=== PATIENT | male | born 1980 | race Caucasian/White ===

== ENCOUNTER 2022-07-17 06:16 | Inpatient (IN) ==
[2022-07-17] MEDS ORDERED: CeFAZolin Syr 3,000MG/30 ML 3,000 MG/30 ML SYRINGE IVPB ONE (06:39)
[2022-07-17] MEDS ORDERED: Ringers Solution, Lactated 1,000 ML IVC SCH (06:45)
[2022-07-17] MEDS ORDERED: *HR* FentaNYL (PF) 100 MCG/2 ML VIAL ONE (07:13)
[2022-07-17] MEDS ORDERED: Lidocaine -MPF 2% 5 ML VIAL ONE (07:13)
[2022-07-17] MEDS ORDERED: Lidocaine HCL 4 ML Topical Solution (Laryng-O-Jet Kit Sterile Pak) TP ONE (07:13)
[2022-07-17] MEDS ORDERED: *HR* Propofol 200 MG/20 ML VIAL IVP ONE ×2 (07:13→08:27)
[2022-07-17] MEDS ORDERED: *HR* Midazolam HCl 2 MG/2 ML VIAL ONE (07:13)
[2022-07-17] MEDS ORDERED: *HR* Succinylcholine 200 MG/10 ML VIAL IVP ONE (07:13)
[2022-07-17] MEDS ORDERED: *HR* Rocuronium Bromide 50 MG/5 ML VIAL ONE (07:13)
[2022-07-17] MEDS ORDERED: *HR* HYDROmorphone (PF) 1 MG/ML SYRINGE IVP PRN (07:15)
[2022-07-17] MEDS ORDERED: *HR* Labetalol 20 MG/4 ML SYRINGE IVP PRN (07:15)
[2022-07-17] MEDS ORDERED: Scopolamine Patch 1.5 MG PATCH.TD72 TD ONE (07:15)
[2022-07-17] MEDS ORDERED: Famotidine 20 MG/2 ML VIAL IVP ONE (07:15)
[2022-07-17] MEDS ORDERED: Ondansetron 4 MG/2 ML VIAL IVP PRN ×2 (07:15→12:34)
[2022-07-17] MEDS ORDERED: *HR* OxyCODONE Immed Rel 5 MG TABLET PO PRN (07:15)
[2022-07-17] MEDS ORDERED: Acetaminophen IV 1,000 MG/100 ML BAG IVPB ONE (07:15)
[2022-07-17] MEDS ORDERED: *HR* HYDROmorphone 2 MG TABLET PO PRN (07:15)
[2022-07-17] MEDS ORDERED: Lidocaine/EPI 1:100k 1% 20 ML VIAL ONE (07:22)
[2022-07-17] MEDS ORDERED: Dexmedetomidine HCl 0 MCG/0 ML MLS IVC ONE (07:38)
[2022-07-17] MEDS ORDERED: *HR* Vasopressin 20 UNIT/ML VIAL ONE (07:38)
[2022-07-17] MEDS ORDERED: Sugammadex Sodium 200 MG/2 ML VIAL IV ONE ×2 (08:37→08:39)
[2022-07-17] MEDS ORDERED: flumazeniL 0.5 MG/5 ML VIAL IVP ONE (08:49)
[2022-07-17] MEDS ORDERED: Naloxone 0.4 MG/ML INJ ONE (08:54)
[2022-07-17] MEDS ORDERED: *HR* OxyCODONE/APAP 5/325 TABLET PO PRN (12:34)
[2022-07-17] MEDS ORDERED: Ampicillin/Sulbactam 3,000 MG in 0.9 % Sodium Chloride Mini Bag 100 ML IVPB SCH (13:27)
[2022-07-17 13:39] LABS: Basophils % 0.3 %; Eosinophils % 0.1 %; Hematocrit 48.9 % (37.5-50.1); Hemoglobin 15.2 g/dL (12.9-16.9); Immature Granulocytes % 0.4 % (0-4); Lymphocytes # 0.5 K/mcL (0.6-4.6); Lymphocytes % 6.5 %; Mean Corpuscular HGB Conc 31.1 g/dL (31.6-35.5); Mean Corpuscular Hemoglobin 29.1 pg (28.0-33.3); Mean Corpuscular Volume 93.7 fL (83.0-100.0); Mean Platelet Volume 10.6 fL (9.4-12.4); Monocytes # 0.1 K/mcL (0.0-1.3); Monocytes % 1.2 %; Neutrophils # 7.1 K/mcL (1.6-8.9); Platelet Count 189 K/mcL (140-400); Red Blood Count 5.22 M/mcL (4.19-5.50); Red Cell Distribution Width 14.3 % (11.5-14.5); Segmented Neutrophils % 91.5 %; White Blood Count 7.8 K/mcL (4.3-11.1)
[2022-07-17 13:57] LABS: Alanine Aminotransferase 34 Units/L (7-52); Albumin 3.7 g/dL (3.5-5.7); Albumin/Globulin Ratio 1.6 (1.1-2.2); Alkaline Phosphatase 117 Units/L (34-104); Aspartate Amino Transferase 46 Units/L (13-39); BUN/Creatinine Ratio 17 (6-26); Bilirubin,Total 0.4 mg/dL (0.3-1.0); Blood Urea Nitrogen 13 mg/dL (6-20); Calcium 8.6 mg/dL (8.6-10.3); Carbon Dioxide 28 mEq/L (23-29); Chloride 108 mEq/L (98-107); Globulin 2.3 g/dL (2.4-3.5); Glucose 158 mg/dL (70-105); Osmolality,Calculated 295 (280-300); Phosphorous 2.6 mg/dL (2.7-4.5); Potassium 4.6 mEq/L (3.5-5.1); Sodium 141 mEq/L (136-145)
[2022-07-17 13:59] LABS: ABG Base Excess 1 mEq/L (-2 to 3); ABG HCO3 29 mEq/L (21-27); ABG Oxygen Saturation 91 % (95-98); ABG PCO2 57 mmHg (35-45); ABG PH 7.31 pH Units (7.32-7.45); ABG PO2 69 mmHg (85-104); ABG TCO2 31 mEq/L (20-26)
[2022-07-17 15:29] LABS: Adenovirus Not Detected (Not Detect); Bordetella Pertussis Not Detected (Not Detect); Chlamydophila pneumoniae Not Detected (Not Detect); Coronavirus 229E Not Detected (Not Detect); Coronavirus HKU1 Not Detected (Not Detect); Coronavirus NL63 Not Detected (Not Detect); Coronavirus OC43 Not Detected (Not Detect); Human Metapneumovirus Not Detected (Not Detect); Human Rhinovirus/Enterovirus Not Detected (Not Detect); Influenza A Subtype 2009 H1 Not Detected (Not Detect); Influenza B Not Detected (Not Detect); Mycoplasma pneumoniae Not Detected (Not Detect); Parainfluenza Virus 1 Not Detected (Not Detect); Parainfluenza Virus 2 Not Detected (Not Detect); Parainfluenza Virus 3 Not Detected (Not Detect); Parainfluenza Virus 4 Not Detected (Not Detect); Respiratory Syncytial Virus Not Detected (Not Detect); SARS-CoV-2 Not Detected (Not Detect)
[2022-07-17] MEDS: Ampicillin/Sulbactam 3,000 MG in 0.9 % Sodium Chloride Mini Bag 100 ML IVPB SCH ×2 (15:48→23:01)
[2022-07-17] MEDS: *HR* Heparin 5,000 UNIT/ML VIAL SQ SCH (17:21)
[2022-07-17 17:28] LABS: VBG HCO3 25 mEq/L (21-27); VBG PCO2 37 mmHg (41-51); VBG PH 7.44 pH Units (7.32-7.42); VBG PO2 208 mmHg (25-50)
[2022-07-18] MEDS: Ampicillin/Sulbactam 3,000 MG in 0.9 % Sodium Chloride Mini Bag 100 ML IVPB SCH ×4 (05:14→21:58)
[2022-07-18] MEDS: *HR* Heparin 5,000 UNIT/ML VIAL SQ SCH ×3 (05:15→21:58)
[2022-07-18] MEDS: Aspirin Enteric Coated 81 MG Tablet PO SCH (08:13)
[2022-07-18] MEDS: Loratadine 10 MG TABLET PO SCH (08:13)
[2022-07-18] MEDS: BuPROPion XL (24 HR) 150 MG TABLET PO SCH (08:13)
[2022-07-18 09:21] LABS: Basophils % 0.2 %; Eosinophils % 0.1 %; Hemoglobin 14.6 g/dL (12.9-16.9); Immature Granulocytes % 0.4 % (0-4); Lymphocytes # 2.2 K/mcL (0.6-4.6); Lymphocytes % 22.8 %; Mean Corpuscular HGB Conc 30.4 g/dL (31.6-35.5); Mean Corpuscular Hemoglobin 28.8 pg (28.0-33.3); Mean Corpuscular Volume 94.7 fL (83.0-100.0); Mean Platelet Volume 10.6 fL (9.4-12.4); Monocytes # 0.9 K/mcL (0.0-1.3); Monocytes % 9.5 %; Neutrophils # 6.6 K/mcL (1.6-8.9); Platelet Count 227 K/mcL (140-400); Red Blood Count 5.07 M/mcL (4.19-5.50); Red Cell Distribution Width 14.1 % (11.5-14.5); White Blood Count 9.8 K/mcL (4.3-11.1)
[2022-07-18 09:38] LABS: BUN/Creatinine Ratio 15 (6-26); Blood Urea Nitrogen 11 mg/dL (6-20); Calcium 8.5 mg/dL (8.6-10.3); Carbon Dioxide 32 mEq/L (23-29); Chloride 107 mEq/L (98-107); Glucose 109 mg/dL (70-105); Osmolality,Calculated 296 (280-300); Potassium 4.4 mEq/L (3.5-5.1); Sodium 143 mEq/L (136-145)
[2022-07-18 10:29] LABS: ABG Base Excess 3 mEq/L (-2 to 3); ABG HCO3 32 mEq/L (21-27); ABG Oxygen Saturation 96 % (95-98); ABG PCO2 66 mmHg (35-45); ABG PO2 97 mmHg (85-104); ABG TCO2 34 mEq/L (20-26)
[2022-07-18] MEDS ORDERED: Ipratropium/Albuterol Neb 3 ML IH PRN (12:10)
[2022-07-18] MEDS: Ipratropium/Albuterol Neb 3 ML IH SCH ×2 (15:38→21:37)
[2022-07-19 02:57] LABS: Basophils # 0.1 K/mcL (0.0-0.2); Basophils % 0.7 %; Eosinophils # 0.1 K/mcL (0.0-0.6); Eosinophils % 1.2 %; Hematocrit 43.6 % (37.5-50.1); Hemoglobin 13.3 g/dL (12.9-16.9); Immature Granulocytes % 0.3 % (0-4); Lymphocytes # 3.5 K/mcL (0.6-4.6); Lymphocytes % 33.6 %; Mean Corpuscular HGB Conc 30.5 g/dL (31.6-35.5); Mean Corpuscular Hemoglobin 28.9 pg (28.0-33.3); Mean Corpuscular Volume 94.6 fL (83.0-100.0); Mean Platelet Volume 10.7 fL (9.4-12.4); Monocytes # 0.9 K/mcL (0.0-1.3); Neutrophils # 5.8 K/mcL (1.6-8.9); Platelet Count 178 K/mcL (140-400); Red Blood Count 4.61 M/mcL (4.19-5.50); Segmented Neutrophils % 55.2 %; White Blood Count 10.4 K/mcL (4.3-11.1)
[2022-07-19 03:18] LABS: BUN/Creatinine Ratio 18 (6-26); Blood Urea Nitrogen 13 mg/dL (6-20); Calcium 8.3 mg/dL (8.6-10.3); Carbon Dioxide 33 mEq/L (23-29); Chloride 106 mEq/L (98-107); Glucose 102 mg/dL (70-105); Osmolality,Calculated 296 (280-300); Potassium 3.8 mEq/L (3.5-5.1); Sodium 143 mEq/L (136-145)
[2022-07-19] MEDS: Ipratropium/Albuterol Neb 3 ML IH SCH ×4 (03:41→20:26)
[2022-07-19] MEDS: *HR* Heparin 5,000 UNIT/ML VIAL SQ SCH ×3 (04:57→21:17)
[2022-07-19] MEDS: Ampicillin/Sulbactam 3,000 MG in 0.9 % Sodium Chloride Mini Bag 100 ML IVPB SCH ×4 (04:57→21:18)
[2022-07-19 05:16] LABS: VBG HCO3 28 mEq/L (21-27); VBG PCO2 41 mmHg (41-51); VBG PH 7.44 pH Units (7.32-7.42); VBG PO2 203 mmHg (25-50)
[2022-07-19] MEDS: BuPROPion XL (24 HR) 150 MG TABLET PO SCH (09:23)
[2022-07-19] MEDS: Loratadine 10 MG TABLET PO SCH (09:23)
[2022-07-19] MEDS: Aspirin Enteric Coated 81 MG Tablet PO SCH (09:24)
[2022-07-20] MEDS: Ipratropium/Albuterol Neb 3 ML IH SCH ×4 (04:31→21:49)
[2022-07-20] MEDS: *HR* Heparin 5,000 UNIT/ML VIAL SQ SCH ×2 (05:03→14:08)
[2022-07-20] MEDS: Ampicillin/Sulbactam 3,000 MG in 0.9 % Sodium Chloride Mini Bag 100 ML IVPB SCH ×3 (05:03→15:29)
[2022-07-20] MEDS: BuPROPion XL (24 HR) 150 MG TABLET PO SCH (08:51)
[2022-07-20] MEDS: Loratadine 10 MG TABLET PO SCH (08:51)
[2022-07-20] MEDS: Aspirin Enteric Coated 81 MG Tablet PO SCH (08:51)
[2022-07-21] MEDS: Ampicillin/Sulbactam 3,000 MG in 0.9 % Sodium Chloride Mini Bag 100 ML IVPB SCH ×5 (00:40→21:38)
[2022-07-21] MEDS: *HR* Heparin 5,000 UNIT/ML VIAL SQ SCH ×4 (01:32→21:37)
[2022-07-21] MEDS: Ipratropium/Albuterol Neb 3 ML IH SCH ×4 (04:22→22:02)
[2022-07-21] MEDS: Aspirin Enteric Coated 81 MG Tablet PO SCH (07:55)
[2022-07-21] MEDS: Loratadine 10 MG TABLET PO SCH (07:55)
[2022-07-21] MEDS: BuPROPion XL (24 HR) 150 MG TABLET PO SCH (07:55)
[2022-07-22] MEDS: Ipratropium/Albuterol Neb 3 ML IH SCH ×4 (04:52→19:49)
[2022-07-22] MEDS: Ampicillin/Sulbactam 3,000 MG in 0.9 % Sodium Chloride Mini Bag 100 ML IVPB SCH (05:25)
[2022-07-22] MEDS: *HR* Heparin 5,000 UNIT/ML VIAL SQ SCH ×2 (05:59→13:51)
[2022-07-22] MEDS: Aspirin Enteric Coated 81 MG Tablet PO SCH (08:02)
[2022-07-22] MEDS: BuPROPion XL (24 HR) 150 MG TABLET PO SCH (08:02)
[2022-07-22] MEDS: Loratadine 10 MG TABLET PO SCH (08:02)
[2022-07-23] MEDS: Ipratropium/Albuterol Neb 3 ML IH SCH ×4 (03:48→23:41)
[2022-07-23] MEDS: *HR* Heparin 5,000 UNIT/ML VIAL SQ SCH ×4 (08:26→21:20)
[2022-07-23] MEDS: Aspirin Enteric Coated 81 MG Tablet PO SCH (08:27)
[2022-07-23] MEDS: Loratadine 10 MG TABLET PO SCH (08:27)
[2022-07-23] MEDS: BuPROPion XL (24 HR) 150 MG TABLET PO SCH (08:27)
[2022-07-23 10:14] LABS: Basophils # 0.1 K/mcL (0.0-0.2); Basophils % 0.5 %; Eosinophils # 0.4 K/mcL (0.0-0.6); Eosinophils % 3.9 %; Hematocrit 54.3 % (37.5-50.1); Immature Granulocytes % 0.4 % (0-4); Lymphocytes # 1.8 K/mcL (0.6-4.6); Lymphocytes % 18.7 %; Mean Corpuscular Volume 96.6 fL (83.0-100.0); Mean Platelet Volume 10.4 fL (9.4-12.4); Monocytes # 0.7 K/mcL (0.0-1.3); Monocytes % 6.9 %; Neutrophils # 6.7 K/mcL (1.6-8.9); Platelet Count 249 K/mcL (140-400); Red Blood Count 5.62 M/mcL (4.19-5.50); Red Cell Distribution Width 14.3 % (11.5-14.5); Segmented Neutrophils % 69.6 %; White Blood Count 9.6 K/mcL (4.3-11.1)
[2022-07-23 10:18] LABS: Hemoglobin 16.3 g/dL (12.9-16.9)
[2022-07-23 10:32] LABS: BUN/Creatinine Ratio 13 (6-26); Blood Urea Nitrogen 10 mg/dL (6-20); Calcium 9.6 mg/dL (8.6-10.3); Carbon Dioxide 35 mEq/L (23-29); Chloride 103 mEq/L (98-107); Glucose 73 mg/dL (70-105); Osmolality,Calculated 292 (280-300); Potassium 3.8 mEq/L (3.5-5.1); Sodium 142 mEq/L (136-145)
[2022-07-24] MEDS: Ipratropium/Albuterol Neb 3 ML IH SCH ×3 (03:43→15:20)
[2022-07-24] MEDS: *HR* Heparin 5,000 UNIT/ML VIAL SQ SCH ×2 (05:07→15:27)
[2022-07-24] MEDS: BuPROPion XL (24 HR) 150 MG TABLET PO SCH (08:21)
[2022-07-24] MEDS: Aspirin Enteric Coated 81 MG Tablet PO SCH (08:21)
[2022-07-24] MEDS: Loratadine 10 MG TABLET PO SCH (08:21)
[2022-07-24 14:41] LABS: Adenovirus Not Detected (Not Detect); Bordetella Pertussis Not Detected (Not Detect); Chlamydophila pneumoniae Not Detected (Not Detect); Coronavirus 229E Not Detected (Not Detect); Coronavirus HKU1 Not Detected (Not Detect); Coronavirus NL63 Not Detected (Not Detect); Coronavirus OC43 Not Detected (Not Detect); Human Metapneumovirus Not Detected (Not Detect); Human Rhinovirus/Enterovirus Not Detected (Not Detect); Influenza A Subtype 2009 H1 Not Detected (Not Detect); Influenza B Not Detected (Not Detect); Mycoplasma pneumoniae Not Detected (Not Detect); Parainfluenza Virus 1 Not Detected (Not Detect); Parainfluenza Virus 2 Not Detected (Not Detect); Parainfluenza Virus 3 Not Detected (Not Detect); Parainfluenza Virus 4 Not Detected (Not Detect); Respiratory Syncytial Virus Not Detected (Not Detect); SARS-CoV-2 Not Detected (Not Detect)
[2022-07-24 14:54] VITALS: BP 112/72; PULSE 100; TEMP 97.6
[2022-07-24 15:22] VITALS: O2SAT 91
== END 2022-07-24 18:43 | DRG 193 ==
LOC: SAMDAY 06:16 → 3ANU 12:19
PROVIDERS: ADMIT Surgery; ATTEND Surgery